=== PATIENT | female | born 1980 ===

== ENCOUNTER 2024-07-30 07:52 | Outpatient (CLI) | payer OTHER ==
[2024-07-30 08:52] LABS: HEMATOCRIT 38.5 % (36.0-45.00); HEMOGLOBIN 12.7 g/dL (12.0-15.00); MEAN CELL VOLUME 81.1 fL (80.00-100.00); MEAN CORPUSCULAR HEMOGLOBIN 26.7 pg (27.00-32.0); MEAN CORPUSCULAR HGB CONC 32.9 g/dl (32.0-36.0); PLATELET COUNT 353 K/uL (150-450); RED BLOOD COUNT 4.75 M/uL (4.00-6.00); RED CELL DISTRIBUTION WIDTH 14.4 % (11.5-14.5)
[2024-07-30 09:22] LABS: PH,URINE 5.5 (5.0-8.0); URINE APPEARANCE Clear; URINE BILIRRUBIN Negative (NEGATIVE); URINE BLOOD Negative; URINE COLOR Yellow; URINE GLUCOSE Negative (NEGATIVE); URINE KETONE Negative (NEGATIVE); URINE LEUKOCYTE Negative; URINE NITRATE Negative; URINE PROTEIN Negative (NEGATIVE); URINE UROBILINOGEN 0.2 E.U./dl
[2024-07-30 09:28] LABS: URINE BACTERIA 899.6 uL (0.0-1933); URINE EPITHELIAL CELLS 15.3 uL (0.0-38.8); URINE RBC 3.2 uL (0.0-20.8); URINE WBC 2.5 uL (0.0-23.2)
[2024-07-30 09:54] LABS: ALBUMIN 3.3 gm/dL (3.4-5.0); BILIRUBIN TOTAL 0.21 mg/dL (0.3-1.2); CALCIUM 8.7 mg/dL (8.5-10.1); CHOL HDL RATIO 4.7 (0-5.0); CREATININE SERUM 0.57 mg/dL (0.55-1.02); GFR 115.76; GLOBULINA 4.5 G/DL (2.4-3.5); POTASSIUM 4.09 mEq/L (3.5-5.1); T4 FREE 1.12 NG/ML (0.76-1.46); TOTAL PROTEIN 7.8 gm/dL (6.4-8.2); TSH 0.932 uIU/mL (0.358-3.74)
[2024-07-30 11:57] LABS: ob NEGATIVE (NEGATIVE)
[2024-07-31 10:05] LABS: ESTRADIOL SERUM 82.8 pg/mL (.)
== END 2024-07-30 23:00 | disposition home or self-care (01) ==
LOC: LAB 07:52
PROVIDERS: ATTEND Internal Medicine
DX: Z00.00 Encounter for general adult medical examination without abnormal findings (principal); E66.9 Obesity, unspecified

== ENCOUNTER 2024-07-30 08:38 | Outpatient (CLI) | payer OTHER | END 2024-07-30 08:49 | disposition home or self-care (01) | LOC: MAMO-SONO 08:38 | PROVIDERS: ATTEND Internal Medicine | DX: Z00.00 Encounter for general adult medical examination without abnormal findings (principal); E66.9 Obesity, unspecified ==

== ENCOUNTER 2025-01-09 06:42 | Outpatient (CLI) | payer OTHER ==
[2025-01-09 07:37] LABS: BASO % 0.8 % (0.1-1.2); EOS # 0.19 (0.04-0.54); EOS % 2.9 % (0.7-7.0); HEMATOCRIT 41.4 % (34.1-44.9); HEMOGLOBIN 13.1 g/dL (11.2-15.7); LYMPH # 1.99 (1.18-3.74); LYMPH % 30.1 % (19.3-53.1); MEAN CORPUSCULAR HEMOGLOBIN 25.7 pg (25.6-32.2); MONO # 0.68 (0.24-0.82); MONO % 10.3 % (4.7-12.5); NEUT # 3.69 (1.56-6.13); NEUT % 55.7 % (34.0-71.1); PLATELET COUNT 442 K/uL (163-369); RED BLOOD COUNT 5.09 M/uL (3.93-5.22); RED CELL DISTRIBUTION WIDTH 13.4 % (11.6-14.4)
[2025-01-09 09:06] LABS: ALBUMIN 3.6 gm/dL (3.4-5.0); BILIRUBIN TOTAL 0.32 mg/dL (0.3-1.2); CALCIUM 9.1 mg/dL (8.5-10.1); CHOL HDL RATIO 5.4 (0-5.0); CREATININE SERUM 0.53 mg/dL (0.55-1.02); GFR 125.9; GLOBULINA 4.5 G/DL (2.4-3.5); POTASSIUM 4.24 mEq/L (3.5-5.1); TOTAL PROTEIN 8.1 gm/dL (6.4-8.2)
== END 2025-01-09 06:48 | disposition home or self-care (01) ==
LOC: LAB 06:42
PROVIDERS: ATTEND Internal Medicine
DX: Z00.00 Encounter for general adult medical examination without abnormal findings (principal); E66.9 Obesity, unspecified

== ENCOUNTER 2025-01-09 07:28 | Outpatient (CLI) | payer OTHER | END 2025-01-09 07:31 | disposition home or self-care (01) | LOC: SONOGRAMA 07:28 | PROVIDERS: ATTEND Obstetrics & Gynecology | DX: R92.8 Other abnormal and inconclusive findings on diagnostic imaging of breast (principal); Z01.419 Encounter for gynecological examination (general) (routine) without abnormal findings ==